=== PATIENT | male | born 2000 | race Caucasian/White ===

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

== ENCOUNTER 2022-03-30 18:48 | Emergency (ER) | payer OTHER ==
[~2022-03-30] VITALS: Ht 175.2 cm; Wt 68.0 kg
[2022-03-30] MEDS ORDERED: DIVALPROEX SOD250 MG PO (19:53)
== END 2022-03-30 20:02 | disposition home or self-care (01) ==
LOC: ED 18:48
DX: M25.561 Pain in right knee (principal)

== ENCOUNTER 2022-09-06 21:04 | Emergency (ER) | payer OTHER ==
[~2022-09-06 21:04] MED LIST changes: +DIVALPROEX SOD250 MG PO
[2022-09-07] MEDS ORDERED: AMOXICILLIN500 M2 PO (00:26)
== END 2022-09-07 00:36 | disposition home or self-care (01) ==
LOC: ED 21:04
DX: H66.91 Otitis media, unspecified, right ear (principal)

== ENCOUNTER 2025-02-19 20:26 | Emergency (ER) | payer OTHER ==
[~2025-02-19 20:26] MED LIST changes: +AMOXICILLIN500 M2 PO
== END 2025-02-20 01:02 | disposition home or self-care (01) ==
LOC: ED 20:26
DX: F32.A Depression, unspecified (principal); Z59.9 Problem related to housing and economic circumstances, unspecified